=== PATIENT | female | born 1990 | race Caucasian/White ===

== ENCOUNTER 2017-03-03 10:08 | Emergency (ER) | payer MEDICAID, OTHER ==
[~2017-03-03] VITALS: Ht 152.4 cm; Wt 75.0 kg
[~2017-03-03 10:08] MED LIST: CEPH500C3 PO; DARV PO; DOXY100T PO
[2017-03-03 10:09] VITALS: BP 138/97; PULSE 84; RESP 14; TEMP 98.3; O2SAT 99
[2017-03-03] MEDS ORDERED: CLIN300C5 PO (10:47)
[2017-03-03] MEDS ORDERED: NORC5TAB PO (10:47)
--- NOTE | 2017-03-03 10:53 | PD ---
HPI . Toothache Chief Complaint: Oral / Dental Pain or Problem Time Seen by Provider: 10:45 Travel History International Travel<30 days: No Contact w/Intl Traveler<30days: No Traveled to known affect area: No History of Present Illness HPI This is an autistic patient who presents to us with a toothache. She is not able to give any history. Mother reports the onset of toothache over the weekend. Mother has treated her at home with Ambusol and Advil with good relief. PFSH Past Medical History Developmental Delay: Yes Diabetes: Yes Patient Takes Glucophage: Yes Psychiatric: Yes (AUTISM) ?: Unknown Past Surgical History Oral Surgery: Yes Social History Alcohol Use: No Tobacco Use: No Substance Use: No Allergies-Medications (Allergen,Severity, Reaction): Coded Allergies: Sulfa (Sulfonamide Antibiotics) (Unverified Allergy, Severe, Rash, 10/29/16 ) Reported Meds & Prescriptions Reported Meds & Active Scripts Active Darvocet-N 100 (Propoxyphene Napsylate/Acetam) Tab 1-2 Tab PO Q6HPRN Vibramycin (Doxycycline Hyclate) 100 Mg Cap 100 Mg PO BID Keflex (Cephalexin Monohydrate) 500 Mg Cap 500 Mg PO Q8 Review of Systems ROS Limitations: Poor Historian Physical Exam Narrative GENERAL: Awake and alert and in no acute distress. She is playing on her pad. SKIN: Warm and dry. HEAD: Normocephalic/atraumatic. No facial swelling. EYES: Pupils are equal. Extraocular movements are intact. ENT: Right mandibular canine tooth has deep dental caries with tenderness. The surrounding gums are not particularly erythematous or edematous. NECK: Normal range of motion. No cervical lymphadenopathy. CARDIOVASCULAR: Regular rate and rhythm. RESPIRATORY: Nonlabored respirations. MUSCULOSKELETAL: Atraumatic. NEUROLOGICAL: Nonfocal. PSYCHIATRIC: Appropriate mood and affect. Data Data Last Documented VS Vital Signs Date Time Temp Pulse Resp B/P (MAP) Pulse Ox O2 Delivery O2 Flow Rate FiO2 03/03/17 10:09 98.3 84 14 138/97 (111) 99 MDM Medical Decision Making Medical Screen Exam Complete: Yes Emergency Medical Condition: Yes Differential Diagnosis Differential diagnosis of a toothache includes but is not limited to dental caries, dental abscess, gingivitis, drug-seeking behavior. Narrative Course This patient is autistic. She was sent here from the dentist office for evaluation of toothache. Apparently, she has required sedation for dental work in the past. This was done in the outpatient setting. I will discharge her on clindamycin and [place] with referral to an oral surgeon. The oral surgeon can arrange for treatment in the OR if needed. Diagnosis Primary Impression: Toothache Referrals: Dominick Doyle DMD 3 days Med/Other Pt SpecificInfo: Prescription(s) given Scripts Hydrocodone-Acetaminophen ([place]) 5 Mg-325 Mg Tab 1 TAB PO Q4H Y for PAIN, #12 TAB 0 Refills Prov: Susan Siddiqui MD 03/03/17 Clindamycin (Clindamycin) 300 Mg Cap 300 MG PO TID for Infection, #21 CAP 0 Refills Prov: Susan Siddiqui MD 03/03/17 Disposition: 01 DISCHARGE HOME Condition: Stable Susan Siddiqui MD Mar 03, 2017 10:53
[2017-03-03] MEDS ORDERED: METF500T PO (11:28)
== END 2017-03-03 11:27 | disposition home or self-care (01) ==
LOC: NEPE 10:08
DX: K08.89 Other specified disorders of teeth and supporting structures (principal)
CPT/HCPCS: 99284

== ENCOUNTER 2017-05-09 01:52 | Emergency (ER) | payer MEDICAID ==
[~2017-05-09] VITALS: Ht 157.5 cm; Wt 72.0 kg
[~2017-05-09 01:52] MED LIST changes: -CEPH500C3 PO; +CLIN300C5 PO; -DARV PO; -DOXY100T PO; +METF500T PO; +NORC5TAB PO
[2017-05-09 02:01] VITALS: BP 128/88; PULSE 121; RESP 18; TEMP 102.8; O2SAT 97
[2017-05-09] MEDS ORDERED: ACETAMINOPHEN 325 MG TAB PO ONE (03:30)
[2017-05-09 04:23] LABS: BILIRUBIN, URINE NEG (NEG); BLOOD, URINE SMALL (NEG); GLUCOSE,URINE 1000 mg/dL (NEG); KETONE, URINE 40 mg/dL (NEG); NITRITE,URINE NEG (NEG); SQUAMOUS EPITHELIAL CELL URINE <1 /hpf (0-5); URINE COLOR YELLOW (YELLW/STRAW); URINE LEUKOCYTE ESTERASE NEG (NEG)
--- NOTE | 2017-05-09 04:26 | RADRPT ---
EXAM DATE/TIME: 05/09/2017 03:59 [facility] COMPARISON: No previous studies available for comparison. INDICATIONS : Pain. MEDICAL HISTORY : None. SURGICAL HISTORY : None. ENCOUNTER: Initial ACUITY: 2 days PAIN SCORE: 10/10 LOCATION: Right foot FINDINGS: Three view examination of the right foot demonstrates no soft tissue swelling, dislocation, or fractu re. The tarsal bones appear intact. The interphalangeal and metatarsophalangeal joints are intact. The calcaneus is intact. Bony mineralization is normal. Type I accessory navicular. CONCLUSION: No acute abnormality of the right foot. Raciel Diggs MD on May 09, 2017 at 4:24 Board Certified Radiologist. This report was verified electronically.
[2017-05-09 06:33] VITALS: TEMP 97.6
--- NOTE | 2017-05-09 06:45 | PD ---
HPI Chief Complaint: Fever Time Seen by Provider: 02:46 Travel History International Travel<30 days: No Contact w/Intl Traveler<30days: No Traveled to known affect area: No History of Present Illness HPI Patient is a 26-year-old MR child who is having a fever of unknown origin she has some congestion and cough .. Also her right foot is severely tender and she is refusing to weight-bare according to mother. No trauma no fall. > pt has had uti in past but mother denies odorous urine at this time ... pt is refusing to weight bare on this foot right side today . PFSH Past Medical History Developmental Delay: Yes Diabetes: Yes Patient Takes Glucophage: No Diminished Hearing: No Psychiatric: Yes (AUTISM) ?: Not Past Surgical History Oral Surgery: Yes Social History Alcohol Use: No Tobacco Use: No Substance Use: No Allergies-Medications (Allergen,Severity, Reaction): Coded Allergies: Sulfa (Sulfonamide Antibiotics) (Unverified Allergy, Severe, Rash, 05/09/17 ) Reported Meds & Prescriptions Reported Meds & Active Scripts Active Reported Metformin (Metformin HCl) 500 Mg Tab 500 Mg PO BIDPC Review of Systems ROS Limitations: Poor Historian (MR) Physical Exam Narrative GENERAL: childlike affect and behavior , one word answer to question s from mother not answering me directly SKIN: Warm and dry. HEAD: Atraumatic. Normocephalic. EYES: Pupils equal and round. No scleral icterus. No injection or drainage. ENT: No nasal bleeding or discharge. Mucous membranes pink and moist. NECK: Trachea midline. No JVD. CARDIOVASCULAR: Regular rate and rhythm. RESPIRATORY: No accessory muscle use. Clear to auscultation. Breath sounds equal bilaterally. GASTROINTESTINAL: Abdomen soft, non-tender, nondistended. Hepatic and splenic margins not palpable. MUSCULOSKELETAL: Extremities right foot dorsum is tender pulls away when I touch it but no swelling no discoloration no sugQ hematoma seen pedal pulse 2+ without edema. No obvious deformities. NEUROLOGICAL: Awake and alert. No obvious cranial nerve deficits. Motor grossly within normal limits. Five out of 5 muscle strength in the arms and legs. . PSYCHIATRIC: childlike affect Data Data Last Documented VS Vital Signs Date Time Temp Pulse Resp B/P (MAP) Pulse Ox O2 Delivery O2 Flow Rate FiO2 05/09/17 06:52 05/09/17 06:33 97.6 05/09/17 03:26 Room Air 05/09/17 02:01 121 18 97 Orders Orders Acetaminophen (Tylenol) (05/09/17 03:30) Foot, Complete ([id number]) (05/09/17 ) Urinalysis - C+S If Indicated (05/09/17 03:48) Group A Rapid Strep Screen (05/09/17 03:48) Influenzae A/B Antigen (05/09/17 03:48) Strep Culture (Group A) (05/09/17 03:50) Ed Discharge Order (05/09/17 06:45) Labs Laboratory Tests Test 05/09/17 03:50 Urine Color YELLOW Urine Turbidity CLEAR Urine pH 6.0 Urine Specific [place] 1.028 Urine Protein 100 mg/dL Urine Glucose (UA) 1000 mg/dL Urine Ketones 40 mg/dL Urine Occult Blood SMALL Urine Nitrite NEG Urine Bilirubin NEG Urine Urobilinogen LESS THAN 2.0 MG/DL Urine Leukocyte Esterase NEG Urine RBC 1 /hpf Urine WBC 2 /hpf Urine Squamous Epithelial Cells <1 /hpf Urine Granular Casts 1 /lpf Microscopic Urinalysis Comment CULT NOT INDICATED MDM Medical Decision Making Medical Screen Exam Complete: Yes Emergency Medical Condition: Yes Differential Diagnosis fractured foot vs contusion vs URI with fever and foot contusion not related , pt non toxic appearing in no obviouis distress Narrative Course Urine no infection x-ray no fracture, further ER work up with MR volatile emotional state not emergent and feel pt can go to PCP for further eval URI with congestion and fever Diagnosis Primary Impression: Foot pain Qualified Codes: M79.671 - Pain in right foot Additional Impression: URI (upper respiratory infection) Patient Instructions: Foot Contusion (ED), General Instructions Disposition: 01 DISCHARGE HOME Condition: Chacho Raymundo MD May 09, 2017 06:45
== END 2017-05-09 06:53 | disposition home or self-care (01) ==
LOC: NEPC 01:52
DX: M79.671 Pain in right foot (principal); J06.9 Acute upper respiratory infection, unspecified; E11.9 Type 2 diabetes mellitus without complications; F84.0 Autistic disorder; Z88.2 Allergy status to sulfonamides
CPT/HCPCS: 73630; 81001; 87081; 87804; 87880; 99284